=== PATIENT | female | born 1965 | race Caucasian/White ===

== ENCOUNTER 2021-04-01 11:42 | Emergency (ER) | payer OTHER ==
[2021-04-01 12:11] VITALS: BP 138/77; PULSE 102; TEMP 100.5; BMI 34.1
[2021-04-01] MEDS ORDERED: LIDOCAINE VISCOUS 2% ORAL/TOP 20 ML UNIT-DOSE CUP MM ONE (13:23)
[2021-04-01] MEDS ORDERED: ACETAMINOPHEN 500 MG TABLET (FP) PO ONE (13:24)
[2021-04-01] MEDS ORDERED: LIDOCAINE VISCOUS 2% ORAL/TOP 20 ML UNIT-DOSE CUP ONE (13:48)
[2021-04-01] MEDS ORDERED: ACETAMINOPHEN 325 MG TABLET (FP) ONE (13:49)
[2021-04-01 13:58] LABS: BASO % 0.9 % (0-2.0); EOS % 1.2 % (0-4.5); HEMATOCRIT 26.2 % (32.4-45.2); HEMOGLOBIN 8.8 GM/dL (10.7-15.3); LYMPH % 11.5 % (8-40); MCH 26.7 pg (25.7-33.7); MCHC 33.7 g/dl (32.0-36.0); MEAN CELL VOLUME 79.1 fl (80-96); MEAN PLT VOLUME 8.2 fl (7.5-11.1); MONO % 4.9 % (3.8-10.2); NEUT % 81.5 % (42.8-82.8); PLATELET COUNT 844 K/MM3 (134-434); RBC 3.32 M/mm3 (3.60-5.2); RDW 19.3 % (11.6-15.6); WHITE BLOOD COUNT 13.7 K/mm3 (4.0-10.0)
[2021-04-01 14:29] LABS: ALBUMIN 2.8 g/dl (3.4-5.0); BLOOD UREA NITROGEN 13.6 mg/dL (7-18)
[2021-04-01 14:31] LABS: CREATININE 1.3 mg/dL (0.55-1.3)
[2021-04-01 14:32] LABS: BILIRUBIN,TOTAL 0.4 mg/dL (0.2-1); TOT PROT 7.7 g/dl (6.4-8.2)
[2021-04-01] MEDS ORDERED: SODIUM CHLORIDE 0.9% 500 ML INFUS.BAG IV ONE (14:39)
== END 2021-04-01 15:30 | disposition home or self-care (01) ==
LOC: JERFT 11:42 → JER 11:42 → JERFT 15:30
DX: K13.70 Unspecified lesions of oral mucosa (principal)
CPT/HCPCS: 36415; 80053; 85025; 87880; 99285-25